=== PATIENT | female | born 2005 | race Caucasian/White ===

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

== ENCOUNTER 2023-01-10 13:36 | Emergency (ER) | payer OTHER, MEDICAID, SELFPAY ==
[2023-01-10] VITALS (9 sets, daily range): BP systolic 109–161; BP diastolic 63–93; PULSE 85–116; RESP 22–38; TEMP 36.2; O2SAT 94–100; BMI 36.6
--- NOTE | 2023-01-10 13:45 | DI.RAD.S_ITS ---
PROCEDURE: XR CHEST 1V INDICATIONS: Shortness of breath TECHNIQUE: One view of the chest was acquired. COMPARISON: [facility], CR, XR CHEST 2V, 01/24/2021, 21:34. FINDINGS: Surgical changes and devices: None. Lungs and pleura: Lungs are clear. No pleural effusions or pneumothorax. Mediastinum: Mediastinal contours appear normal. Heart size is normal. Bones and chest wall: No suspicious bony lesions. Overlying soft tissues appear unremarkable. IMPRESSION: No evidence of an acute cardiopulmonary abnormality. Dictated by: Andrew Parmar D.O. on 01/10/2023 at 13:04 Approved by: Andrew Parmar D.O. on 01/10/2023 at 13:06
[2023-01-10] MEDS: ALBUTEROL/IPRATROPIUM 3 ML AMPUL 9 ML INH (13:50)
[2023-01-10 14:01] LABS: Add Manual Diff / Slide Review NO; Basophils Absolute Auto 100 /uL (0-100); Basophils Percent Auto 1.1 % (0-2); Eosinophils Absolute Auto 700 /uL (0-450); Eosinophils Percent Auto 5.7 % (2-4); Hematocrit 38.7 % (36-46); Hemoglobin 13.2 g/dL (12.0-16.0); Lymphocytes Absolute Auto 2100 /uL (1100-4500); Lymphocytes Percent Auto 16.8 % (25-40); Mean Corpuscular HGB Conc 34.1 % (30-36); Mean Corpuscular Hemoglobin 29.8 PG (26-34); Mean Corpuscular Volume 87.4 fL (80-100); Monocytes Absolute Auto 500 /uL (0-900); Monocytes Percent Auto 3.8 % (3-14); Neutrophils Absolute Auto 9200 /uL (1500-7000); Neutrophils Percent Auto 72.6 % (50-75); Platelet Count 352 X10^3/uL (150-400); Red Blood Cell Count 4.43 X10^6/uL (4.0-5.2); White Blood Cell Count 12.6 X10^3/uL (4.5-11.0)
[2023-01-10 14:11] LABS: Alanine Aminotransferase 27 IU/L (<35); Albumin 4.4 g/dL (3.5-5.0); Albumin Globulin Ratio 1.3 (1.0-2.8); Alkaline Phosphatase 49 U/L (38-126); Aspartate Aminotransferase 22 IU/L (14-36); BUN Creatinine Ratio 9.2 (6-22); Bilirubin Total 0.4 mg/dL (0.2-1.3); Blood Urea Nitrogen 6 mg/dL (7-17); Calcium 9.4 mg/dL (8.4-10.2); Carbon Dioxide 19 mmol/L (22-32); Chloride 106 mmol/L (98-107); Estimated Glomerular Filt Rate > 60 mL/min (>60); Globulin 3.5 g/dL (1.7-4.1); Glucose 107 mg/dL (70-100); HEMOLYSIS < 15 (0-50); Potassium 4.9 mmol/L (3.4-5.1); Sodium 138 mmol/L (137-145); Total Protein 7.9 g/dL (6.3-8.2)
[2023-01-10 14:23] LABS: NT-proBNP (BNP-Adult 18+) 67 pg/mL (<125); Troponin I < 0.012 ng/mL (0.01-0.034)
[2023-01-10 14:40] LABS: Adenovirus Not Detected (Not Detect); B. parapertussis Not Detected (Not Detecte); Bordetella pertussis Not Detected (Not Detecte); Chlamydophila pneumoniae Not Detected (Not Detect); Coronavirus 229E Not Detected (Not Detect); Coronavirus HKU1 Not Detected (Not Detect); Coronavirus NL 63 Not Detected (Not Detect); Coronavirus OC43 Not Detected (Not Detect); Human Metapneumovirus Not Detected (Not Detect); Human Rhinovirus/Enterovirus Not Detected (Not Detect); Influenza A Not Detected (Not Detect); Influenza B Not Detected (Not Detect); Mycoplasma pneumoniae Not Detected (Not Detect); Parainfluenza Virus 1 Not Detected (Not Detect); Parainfluenza Virus 2 Not Detected (Not Detect); Parainfluenza Virus 3 Not Detected (Not Detect); Parainfluenza Virus 4 Not Detected (Not Detect); Respiratory Syncytial Virus Not Detected (Not Detect); SARS- CoV-2 Not Detected (Not Detecte)
[2023-01-10] MEDS: methylPREDNISolone 125 MG/2 ML VIAL IV (15:27)
--- NOTE | 2023-01-10 15:30 | ED_ITS ---
HPI - Asthma General Chief Complaint: Asthma Stated Complaint: SOB/Asthma/inhaler not working Time Seen by Provider: 01/10/23 14:23 Source: patient Mode of arrival: Ambulatory History of Present Illness HPI Narrative: This is a 17-year-old female with history of asthma, patient states she she is had worsening shortness of breath for the past week. She states she typically has issues this time of year she is had to have seasonal allergies. She states she is normally on some sort of anti allergy medication but isn't taking it this year. She states lesser did seem to be as effective but she did not try it this year. Patient states she is been on steroid inhalers without was probably 8 years ago she is been using her nebulizer twice daily with her albuterol inhaler 2-3 times in between. She states that is very atypical for her. She does not know she is been on oral steroids in the past or not. Patient denies any other medical issues. She is on an oral contraceptive. No surgeries. She states she thinks her albuterol vials are . Patient states she felt very tight in her chest she does feel improved she still has some mild tightness but states she can breathe much better than she could before. She denies fevers or chills, no nasal congestion. She has felt like she is had some mild allergies and postnasal drip. No chest pain. No passing out. No other GI or urinary symptoms. No swelling in her extremities. Related Data Previous Rx's Medication Instructions Recorded albuterol sulfate 90 mcg/actuation 2 puff inhalation Q4-6H PRN 09/30/19 aerosol inhaler bronchospasm #8.5 grams ondansetron 4 mg disintegrating 4 mg PO Q8H #10 tabs 06/25/22 tablet albuterol sulfate 90 mcg/actuation 2 puff inhalation Q4-6H PRN 12/12/22 aerosol inhaler shortness of breath or wheezing #6.7 grams albuterol sulfate 2.5 mg/3 mL 2.5 mg (3 mL) inhalation Q4-6H PRN 01/10/23 (0.083 %) solution for nebulization shortness of breath or wheezing #90 mL beclomethasone dipropionate 80 1 inh inhalation BID #10.6 grams 01/10/23 mcg/actuation HFA breath activated aerosol (Qvar RediHaler) loratadine 10 mg tablet 10 mg PO DAILY #30 tabs 01/10/23 (Allerclear) prednisone 20 mg tablet 20 mg PO DAILY #5 tabs 01/10/23 Allergies Allergy/AdvReac Type Severity Reaction Status Date / Time No Known Drug Allergies Allergy Verified 01/10/23 13:38 Review of Systems Review of Systems ROS Unobtainable: All systems reviewed & are unremarkable except as noted in HPI and below Patient History Medical History Asthma Social History Smoking Status: Current some day smoker Smoking Status: Current some day smoker tobacco type: vaping alcohol intake frequency: 0-2 drinks per day Substance Use Type: does not use Exam Narrative Exam Narrative: GENERAL: Alert and oriented x three, female in mild distress. Patient had received neb treatments prior to my evaluation HEENT: Head normocephalic, atraumatic, EOMI, pupils reactive, face symmetric, moist mucous membranes NECK: Supple, full range of motion CARDIOVASCULAR: Regular rate and rhythm without murmurs, rubs or gallops. RESPIRATORY: Breath sounds equal bilaterally, no wheezes rales or rhonchi. No tachypnea or accessory muscle use. Speaks in full sentences. ABDOMEN: Soft, nontender. Normoactive bowel sounds all 4 quadrants. No guardin g or rebound, rigidity, no mass. : No CVA tenderness EXTREMITIES: Normal range of motion, no clubbing or edema. Neurovascularly intact NEUROLOGICAL: Cranial nerves II through XII grossly intact. Moving all extremities SKIN: Warm, dry, no petechiae, no rashes or lesions. Initial Vital Signs Initial Vital Signs: Vital Signs Temperature 97.2 F L 01/10/23 13:38 Pulse Rate 114 H 01/10/23 13:38 Respiratory Rate 38 H 01/10/23 13:38 Blood Pressure 139/91 H 01/10/23 13:38 Pulse Oximetry 100 01/10/23 13:38 Oxygen Delivery Method Room Air 01/10/23 13:38 Course Orders Ordered: ED Orders 01/10/23 13:42 Respiratory Panel (Film Array) Stat 01/10/23 13:44 RT Consult Eval and Treat NOW 01/10/23 13:45 XR chest 1V Stat Complete Blood Count AUTO DIFF Stat Comprehensive Metabolic Panel Stat Lactate (Lactic Acid) Stat NT-proBNP (BNP-Adult 18+) Stat Prothrombin Time INR Stat Troponin I Stat Measure peak expiratory flow ONCE 01/10/23 15:30 EKG-12 Lead Routine Discontinued Medications Albuterol/Ipratropium (Albuterol/Ipratropium 3 Ml Ampul) 9 ml INH NOW ONE Stop: 01/10/23 13:51 Last Admin: 01/10/23 13:50 Dose: 9 ml Documented By: AGUSTINF Methylprednisolone (Methylprednisolone 125 Mg/2 Ml Vial) 125 mg IV NOW ONE Stop: 01/10/23 14:55 Last Admin: 01/10/23 15:27 Dose: 125 mg Documented By: CTS Vital Signs Vital signs: Vital Signs - 8 hr 01/10/23 13:38 01/10/23 13:51 01/10/23 13:42 Temperature 97.2 F L Pulse Rate 114 H 97 H 108 H Respiratory Rate 38 H 22 Blood Pressure 139/91 H Pulse Oximetry 100 94 96 Oxygen Delivery Method Room Air Room Air 01/10/23 13:44 01/10/23 13:44 01/10/23 14:00 Temperature Pulse Rate 116 H 98 H Respiratory Rate Blood Pressure 161/93 H Pulse Oximetry 97 95 Oxygen Delivery Method 01/10/23 14:01 01/10/23 14:01 01/10/23 14:30 Temperature Pulse Rate 103 H Respiratory Rate Blood Pressure 109/63 115/76 Pulse Oximetry 96 Oxygen Delivery Method 01/10/23 14:30 01/10/23 15:00 01/10/23 15:00 Temperature Pulse Rate 100 H 90 Respiratory Rate Blood Pressure 121/69 Pulse Oximetry 97 97 Oxygen Delivery Method Room Air 01/10/23 15:30 01/10/23 15:30 Temperature Pulse Rate 85 Respiratory Rate Blood Pressure 123/71 Pulse Oximetry 97 Oxygen Delivery Method MDM - Asthma Lab Data 01/10/23 13:45 01/10/23 13:45 Labs: Lab Results 01/10/23 01/10/23 01/10/23 Range/Units 13:42 13:45 13:45 WBC 12.6 H (4.5-11.0) X10^3/uL RBC 4.43 (4.0-5.2) X10^6/uL Hgb 13.2 (12.0-16.0) g/dL Hct 38.7 (36-46) % MCV 87.4 (80-100) fL MCH 29.8 (26-34) PG MCHC 34.1 (30-36) % RDW 14.0 (11.6-14.8) % Plt Count 352 (150-400) X10^3/uL Neut % (Auto) 72.6 (50-75) % Lymph % (Auto) 16.8 L (25-40) % [place] % (Auto) 3.8 (3-14) % Eos % (Auto) 5.7 H (2-4) % Baso % (Auto) 1.1 (0-2) % Neut # (Auto) 9200 H (6931-2236) /uL Lymph # (Auto) 2100 (8363-0948) /uL [place] # (Auto) 500 (0-900) /uL Eos # (Auto) 700 H (0-450) /uL Baso # (Auto) 100 (0-100) /uL PT 12.0 (10.1-12.7) SECONDS INR 1.0 (0.9-1.3) Sodium (137-145) mmol/L Potassium (3.4-5.1) mmol/L Chloride (98-107) mmol/L Carbon Dioxide (22-32) mmol/L BUN (7-17) mg/dL Creatinine (0.52-1.04) mg/dL Estimated GFR (>60) mL/min BUN/Creatinine Ratio (6-22) Glucose (70-100) mg/dL Lactate (0.7-2.1) mmol/L Calcium (8.4-10.2) mg/dL Total Bilirubin (0.2-1.3) mg/dL AST (14-36) IU/L ALT (<35) IU/L Alkaline Phosphatase (38-126) U/L Troponin I (0.01-0.034) ng/mL NT-Pro-B Natriuret Pep (<125) pg/mL Total Protein (6.3-8.2) g/dL Albumin (3.5-5.0) g/dL Globulin (1.7-4.1) g/dL Albumin/Globulin Ratio (1.0-2.8) Chlamy pneumoniae PCR Not detected (Not Detect) Adenovirus (PCR) Not detected (Not Detect) B. pertussis DNA (PCR) Not detected (Not Detecte) B.parapertussis DNA PCR Not detected (Not Detecte) Coronavirus OC43 (PCR) Not detected (Not Detect) Coronavirus HKU1 (PCR) Not detected (Not Detect) Coronavirus 229E (PCR) Not detected (Not Detect) SARS-CoV-2 (PCR) Not detected (Not Detecte) Coronavirus NL63 (PCR) Not detected (Not Detect) Human Metapneumovir PCR Not detected (Not Detect) Influenza Type A (PCR) Not detected (Not Detect) Influenza Type B (PCR) Not detected (Not Detect) M. pneumoniae (PCR) Not detected (Not Detect) Parainfluenza 1 (PCR) Not detected (Not Detect) Parainfluenza 2 (PCR) Not detected (Not Detect) Parainfluenza 3 (PCR) Not detected (Not Detect) Parainfluenza 4 (PCR) Not detected (Not Detect) RSV (PCR) Not detected (Not Detect) Entero/Rhino (PCR) Not detected (Not Detect) 01/10/23 01/10/23 Range/Units 13:45 13:45 WBC (4.5-11.0) X10^3/uL RBC (4.0-5.2) X10^6/uL Hgb (12.0-16.0) g/dL Hct (36-46) % MCV (80-100) fL MCH (26-34) PG MCHC (30-36) % RDW (11.6-14.8) % Plt Count (150-400) X10^3/uL Neut % (Auto) (50-75) % Lymph % (Auto) (25-40) % [place] % (Auto) (3-14) % Eos % (Auto) (2-4) % Baso % (Auto) (0-2) % Neut # (Auto) (9129-4287) /uL Lymph # (Auto) (4640-9810) /uL [place] # (Auto) (0-900) /uL Eos # (Auto) (0-450) /uL Baso # (Auto) (0-100) /uL PT (10.1-12.7) SECONDS INR (0.9-1.3) Sodium 138 (137-145) mmol/L Potassium 4.9 (3.4-5.1) mmol/L Chloride 106 (98-107) mmol/L Carbon Dioxide 19 L (22-32) mmol/L BUN 6 L (7-17) mg/dL Creatinine 0.65 (0.52-1.04) mg/dL Estimated GFR > 60 (>60) mL/min BUN/Creatinine Ratio 9.2 (6-22) Glucose 107 H (70-100) mg/dL Lactate 3.0 H (0.7-2.1) mmol/L Calcium 9.4 (8.4-10.2) mg/dL Total Bilirubin 0.4 (0.2-1.3) mg/dL AST 22 (14-36) IU/L ALT 27 (<35) IU/L Alkaline Phosphatase 49 (38-126) U/L Troponin I < 0.012 (0.01-0.034) ng/mL NT-Pro-B Natriuret Pep 67 (<125) pg/mL Total Protein 7.9 (6.3-8.2) g/dL Albumin 4.4 (3.5-5.0) g/dL Globulin 3.5 (1.7-4.1) g/dL Albumin/Globulin Ratio 1.3 (1.0-2.8) Chlamy pneumoniae PCR (Not Detect) Adenovirus (PCR) (Not Detect) B. pertussis DNA (PCR) (Not Detecte) B.parapertussis DNA PCR (Not Detecte) Coronavirus OC43 (PCR) (Not Detect) Coronavirus HKU1 (PCR) (Not Detect) Coronavirus 229E (PCR) (Not Detect) SARS-CoV-2 (PCR) (Not Detecte) Coronavirus NL63 (PCR) (Not Detect) Human Metapneumovir PCR (Not Detect) Influenza Type A (PCR) (Not Detect) Influenza Type B (PCR) (Not Detect) M. pneumoniae (PCR) (Not Detect) Parainfluenza 1 (PCR) (Not Detect) Parainfluenza 2 (PCR) (Not Detect) Parainfluenza 3 (PCR) (Not Detect) Parainfluenza 4 (PCR) (Not Detect) RSV (PCR) (Not Detect) Entero/Rhino (PCR) (Not Detect) Imaging Data Chest x-ray: Radiologist's Impression: [place] [id number] [place] [id number] XRay Report Signed Patient: Flor Paula MR#: [id number] : 2005 Acct:[id number] Age/Sex: 17 / F Date of Service: 01/10/23 Loc: ED Accession Number: [id number] ?? Procedure: XR chest 1V Ordering Provider: Rosaura Arcos D.O. PROCEDURE:? XR CHEST 1V ? INDICATIONS:? Shortness of breath ? TECHNIQUE:? One view of the chest was acquired.? ? COMPARISON:? [facility], CR, XR CHEST 2V, 01/24/2021, 21:34. ? FINDINGS:? ? Surgical changes and devices:? None.? ? Lungs and pleura:? Lungs are clear.? No pleural effusions or pneumothorax.? ? Mediastinum:? Mediastinal contours appear normal.? Heart size is normal.? ? Bones and chest wall:? No suspicious bony lesions.? Overlying soft tissues appear unremarkable.? ? IMPRESSION:? ? No evidence of an acute cardiopulmonary abnormality. ? ? Dictated by: Andrew Parmar D.O. on 01/10/2023 at 13:04 ? ? Approved by: Andrew Parmar D.O. on 01/10/2023 at 13:06?? ECG Data Attestation: I personally reviewed and interpreted this ECG as follows: Interpretation: Normal sinus rhythm rate of 90 [place] 148 QRS is 76 QTC of 420. No acute ST segment changes. No S1 Q 3 T3. MDM Narrative Medical decision making narrative: This is a 17-year-old female who presents with difficulty breathing, history of asthma that was very responsive to albuterol patient received DuoNeb x3. Patient was given additional doses Solu-Medrol 125. Patient has not been hypoxic, tachypnea and tachycardia improved. Chest x-ray is negative, EKG shows no acute change, patient has mild leukocytosis CO2 is 19, BUN 6, lactate was 3, troponin is negative. Respiratory swab is negative. Patient's work of breathing has resolved I do not feel that she needs repeat lactate she appears to clearly have a asthma exacerbation she is not been taking the typical medications she takes this time your when her seasonal allergies flare. Plan to restart anti allergy, short course of prednisone prescription for steroid inhaler she felt that the anti allergy pills 1 is helpful last year and refill of her albuterol vials she thinks they are . Patient was also given a spacer and training. We discussed return precautions. Discharge Plan Departure Patient Disposition: Home Clinical Impression: Acute exacerbation of chronic obstructive airways disease with asthma Instructions: DI for Asthma -- Adult Activity Restrictions/Additional Instructions: Follow-up with your physician for recheck and for an asthma plan. Take Claritin or similar anti-allergy medication once daily. Take prednisone once daily until gone. You may continue with your albuterol either 4-6 puffs every 4 hours as needed and/or 1 vial every 4 hours as needed. I would recommend starting a steroid inhaler, use 1 puff twice daily whether you feel good or bad. This is a maintenance medication. [facility] [place] Please return for fevers new or worsening chest pain, shortness of breath, increasing work of breathing, lightheadedness or passing out, new swelling in her extremities or other new or concerning changes. Prescriptions: New loratadine [Allerclear] 10 mg tablet 10 mg PO DAILY Qty: 30 0RF prednisone 20 mg tablet 20 mg PO DAILY Qty: 5 0RF Qvar RediHaler 80 mcg/actuation HFA aerosol breath activated 1 inh inhalation BID Qty: 10.6 0RF Rx Instructions: administer with spacer albuterol sulfate 2.5 mg /3 mL (0.083 %) solution for nebulization 2.5 mg inhalation Q4-6H PRN (Reason: shortness of breath or wheezing) Qty: 90 0RF No Action albuterol sulfate 90 mcg/actuation HFA aerosol inhaler 2 puff INHALATION Q4-6H PRN (Reason: bronchospasm) Qty: 8.5 0RF albuterol sulfate 90 mcg/actuation HFA aerosol inhaler 2 puff inhalation Q4-6H PRN (Reason: shortness of breath or wheezing) Qty: 6.7 0RF ondansetron 4 mg tablet,disintegrating 4 mg PO Q8H Qty: 10 0RF Referrals: Ermias Bautista MD [Primary Care Provider] - Stand Alone Forms: Patient Portal/API
[2023-01-10 15:54] LABS: Reflexed Lactate in 2 Hours Y
== END 2023-01-10 15:50 | disposition home or self-care (01) ==
PROVIDERS: Emergency Provider Emergency Medicine; PCP Family Medicine
DX: J44.1 Chronic obstructive pulmonary disease with (acute) exacerbation (principal); Z20.822 Contact with and (suspected) exposure to COVID-19
CPT/HCPCS: 36415; 71045; 80053; 83605; 83880; 84484; 85025; 85610; 87633; 93005; 94150; 94640; 96374; 99284; J2930